=== PATIENT | male | born 1960 | race Caucasian/White ===

== ENCOUNTER → 2021-02-10 11:58 | Outpatient (CLI) | payer OTHER, SELFPAY ==
--- NOTE | ~2021-02-10 | MR_ITS ---
EXAMINATION: MR hand RT wo con DATE: 02/10/2021 13:10 INDICATION: Right hand pain. [place] thumb. TECHNIQUE: Magnetic resonance imaging (MRI) of the right hand centered at the thumb excluding portion s of the fourth and fifth fingers was performed without intravenous contrast. Sequences included axia l, sagittal and coronal T1-weighted FSE and T2-weighted FS FSE. COMPARISON: Radiographs dated 02/02/2021 FINDINGS: Bone alignment is normal. No fracture. Tiny marginal osteophytes at the first carpometacarpal and met acarpophalangeal joints with relatively preserved joint spaces consistent with minimal osteoarthritis . Nonspecific mild marrow edema at the palmar aspect of the head of the first metacarpal and base of the first proximal phalanx as well as in both the radial and ulnar sided first metatarsal sesamoids. No erosions. Thickening and mild increased signal at the distal aspect of the ulnar collateral ligame nt consistent with age-indeterminate partial tear versus degeneration. No fluid signal intensity tear defect or ligament discontinuity identified. The flexor and extensor tendons are normal. Visualized intrinsic musculature of the hand is unremarkable. IMPRESSION: 1. Age-indeterminate partial tear versus degeneration of the ulnar collateral ligament of the right t humb. 2. Mild marrow edema at the palmar aspect of the base of the first proximal phalanx, head of the firs t metacarpal and first metacarpal sesamoids which could be related to arthritis or bone contusions in the setting of trauma. Reviewed, dictated and finalized at location A. RY DECORATOR IMPRESSION: 1. Age-indeterminate partial tear versus degeneration of the ulnar collateral l igament of the right thumb. 2. Mild marrow edema at the palmar aspect of the base of the first proximal pha lanx, head of the first metacarpal and first metacarpal sesamoids which could b e related to arthritis or bone contusions in the setting of trauma.
== END ==
PROVIDERS: Visit Provider Orthopaedic Surgery
DX: M79.641 Pain in right hand (principal); R93.7 Abnormal findings on diagnostic imaging of other parts of musculoskeletal system; M79.89 Other specified soft tissue disorders
CPT/HCPCS: 73218

== ENCOUNTER 2021-03-23 14:00 | Outpatient (RCR) | payer OTHER, SELFPAY ==
--- NOTE | 2021-02-24 11:34 | PTOPEVAL ---
Thank you for referring López Coley to [facility].? The patient is scheduled to be seen for therapy? 1-2 x/week for 4 weeks. Please review, sign, date and return this plan of care LAKISHA. I agree with and certify that the following plan of care is medically necessary. Referring Physician Date Attending Provider: Jaycob Quesada MD Diagnosis right shoulder pain and bicepital tendinitis Onset 3-4 months Additional Evaluation Detail He had tennis elbow with improved sympotms with injection and therapy. 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 Subjective Information Reports his pain in mainly on Query Text:As Reported By Patient/ the anterior aspect of his Family elbow. He has incresaed pain with increased weakness from the pain. Reports limitations with reaching, pushing, lifting heavier objects. Diffuclty sleeping due to pain . Denies problems with driving. He as given an anti- inflammatory which helped. 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 He does not exercise. Pain Assessment Right Arm(s) Reported Pain Level 2 Pain Description Sharp,Tender on Palpation Pain Frequency Continuous Lowest Pain Intensity 2 Greatest Pain Intensity 8 Pain Aggravating Factors Exercise/Activity,Lifting Pain Behaviors None Upper Extremity Range of Motion General Upper Extremity Range of Motion Reason Not Measured WNL/Right Gross Upper Extremity Range of Motion pain with end range elbow flex Comments and sup/pronation Upper Extremity Muscle Strength Testing General Upper Extremity Strength Gross Upper Extremity Strength Comments right shoulder flex/abd/ lat rotation/medial rotation: 3+/5 right bicep and tricep: 5/5, sup/pronation: 5/5- pain noted with sup resistance Finger Strength Bilateral Finger Strength 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
--- NOTE | 2021-03-08 09:57 | PCPTNOTE ---
Patient did not show this appointment however a note in the chart states patient will be out of town until March 19.
--- NOTE | 2021-03-23 14:45 | PTOPEVAL ---
Physical Therapy Discharge Summary Thank you for referring López Coley to [facility].?López has attended 4 therapy visits to address his right UE limitations. As a result of skilled therapy services he demonstrates improved UE range, improved pain, improved strength and improved tissue restrictions. He has achieved maximal potential with skilled therapy services at this time. Will DC skilled therapy services at this time. Please review, sign, date and return this discharge summary LAKISHA. I agree with and certify that the following plan of care is medically necessary. Referring Physician Date Attending Provider: Jaycob Quesada MD Diagnosis right shoulder pain and bicepital tendinitis Onset 3-4 months Additional Evaluation Detail He had tennis elbow with improved symptoms with injection and therapy. 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 Subjective Information Reports his pain on the Query Text:As Reported By Patient/ anterior aspect of his elbow Family has improved. Reports minimal changes in the elbow strength, but increased awareness of shoulder weakness. Reports decreased pain with reaching, pushing, lifting heavier objects. Cont difficulty with grasping with lifting motions. Denies any diffuclty with sleeping due to pain, but intermittent stiffness. Pain Assessment Right Arm(s) Reported Pain Level 1 Lowest Pain Intensity 1 Greatest Pain Intensity 5 Upper Extremity Range of Motion General Upper Extremity Range of Motion Gross Upper Extremity Range of Motion no pain with end range elbow Comments fle/ext, slight tenderness with sup/pronation Upper Extremity Muscle Strength Testing General Upper Extremity Strength Gross Upper Extremity Strength Comments right shoulder flex/abd/ext, lat rotation/medial rotation: 4+/5 right bicep and tricep: 5/5, sup/pronation: 5/5 pain noted with sup resistance Palpation Assessment Palpation Palpation mild tenderness lateral epicondyle with wrist ext muscle attachment PT Clinical Summary Pt has attended 4 visits to address his right UE pain and limitations. He miss
== END 2021-03-24 09:39 | disposition home or self-care (01) ==
LOC: ANHPT 14:00
PROVIDERS: Visit Provider Orthopaedic Surgery
DX: M75.21 Bicipital tendinitis, right shoulder (principal); M25.521 Pain in right elbow
CPT/HCPCS: 97035; 97110; 97140; 97161

== ENCOUNTER 2021-10-25 11:15 | Outpatient (RCR) | payer OTHER, SELFPAY ==
--- NOTE | 2021-10-20 14:17 | PTOPEVAL ---
PHYSICAL THERAPY INITIAL EVALUATION. Thank you for referring López Coley to [facility].? The patient is scheduled to be seen for therapy? 1x/week for 4 weeks. Please review, sign, date and return this plan of care LAKISHA. I agree with and certify that the following plan of care is medically necessary. Referring Physician Date Attending Provider: Bryce Lopez M.D. 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 Pt states he has a small fall and about a month after that the pain started. He states he is seeing a doctor regarding a possible L hip replacement. 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 Pain Assessment Lower Back Reported Pain Level 2 Lowest Pain Intensity 0 Greatest Pain Intensity 5 Pain Aggravating Factors Changing Position Bilateral Hip(s) Reported Pain Level 2 Pain Description Aching,Soreness Lowest Pain Intensity 0 Greatest Pain Intensity 8 Pain Aggravating Factors Walking,Weight Bearing/ Standing Lumbar ROM Lumbar Flexion (0-90) 60 Lumbar Flexion Active Ankle Lumbar Extension (0-40) 30 Lateral Flexion able to reach lateral knee Query Text:Active Hands to: joint bilaterally Lateral Rotation Right (0-45) 45 Lateral Rotation Left (0-45) 45 Lower Extremity Range of Motion General Lower Extremity Range of Motion WFL/Left,WFL/Right Upper Extremity Muscle Strength Testing Gross Upper Extremity Strength Comments asad hip abduction 4/5 asad hip extension 4+/5 asad hip flexion 4+/5 asad hip adduction 4+/5 - reports mild discomfort asad knee flexion/extension 5/5 Muscle Length Testing Piriformis w/Hip Flexion >90 Degrees (R) Mild Tightness,(L) Mild Tightness Right Prone Hip Internal Rotator Length 10 Left Prone Hip Internal Rotator Length ( 20 Rig
--- NOTE | 2021-11-01 13:15 | PCPTNOTE ---
Patient did not show up for scheduled appointment this date; called patient who answered the phone stating Sorry, something came up. Reminded patient on next appointment November 10 @ 12:30pm.
--- NOTE | 2021-11-08 13:06 | PCPTNOTE ---
Patient did not show up for scheduled appointment this date; called patient stated he forgot and he couldn't reschedule today due to [place]. Patient then stated to be feeling pretty good since injection into hip has follow-up with MD in November wants to double check with the doctor that he doesn't need therapy anymore before he gets D/C from our system.
--- NOTE | 2021-11-15 16:32 | PCPTNOTE ---
Attending Provider: Bryce Lopez M.D. Patient:López Coley Date of :1960 PHYSICAL THERAPY DISCHARGE SUMMARY. Patient reports he is doing well after getting his hip injection. He would like to be discharged from skilled physical therapy services at this time. Patient?s initial visit was on 10/20/2021 and he had a total of 2 visits. Thank you for referring this patient to [facility]. Please review, sign, date and return this discharge summary LAKISHA. I have been updated about the patient's current status and I agree with discharge from the above service at this time. Referring Physician Date
== END 2021-11-25 15:29 | disposition home or self-care (01) ==
LOC: ANHPT 11:15
PROVIDERS: Referring Provider Neurological Surgery; Visit Provider Neurological Surgery
DX: M75.21 Bicipital tendinitis, right shoulder (principal); M25.511 Pain in right shoulder
CPT/HCPCS: 97112; 97161; 99199

== ENCOUNTER 2023-08-07 08:29 | Outpatient (CLI) | payer OTHER, SELFPAY ==
--- NOTE | ~2023-08-07 | MR_ITS ---
EXAMINATION: MR shoulder RT wo con DATE: 08/07/2023 09:22 INDICATION: Right shoulder tendinitis presenting with pain TECHNIQUE: Magnetic resonance imaging (MRI) of the right shoulder was performed without intravenous c ontrast. Sequences included axial PD-weighted FS FSE, coronal oblique PD-weighted FS FSE, coronal obl ique T2-weighted FS FSE, sagittal PD-weighted FS FSE, and sagittal T1-weighted SE. COMPARISON: Right shoulder radiographs dated 05/29/2023 FINDINGS: Coracoacromial arch: The acromion undersurface is curved in morphology (type II). The coracoacromial ligament is normal. M oderate acromioclavicular osteoarthritis with subarticular cystic change at the lateral head of the l eft clavicle. Rotator cuff: Mild supraspinatus and infraspinatus tendinopathy. There is mild attenuation the distal supraspinatus tendon with tiny foci of fluid signal within the distal 1.5 cm the tendon consistent with partial th ickness tear. No measurable tear defect or discrete tear margin identified without a discrete defect along the bursal or articular surfaces suggesting intrasubstance tearing. The teres minor tendon is n ormal. Mild distal subscapularis tendinopathy without discrete tear. Normal rotator cuff muscle bulk and signal. Biceps tendon, glenoid labrum and glenohumeral cartilage: Mild tendinopathy without discrete tear of the long head biceps tendon. Glenoid labrum is normal. Gle nohumeral cartilage is normal. Fluid: There is small amount increased fluid and synovitis in the long head biceps tendon sheath consistent with moderate bicipital tenosynovitis. No loose osteochondral bodies. Mild increased fluid signal in the subacromial/subdeltoid bursa consistent with minimal bursitis. 7 mm ganglion cyst along the cepha lad margin of the acromioclavicular joint. Bones: Bone alignment is normal. No fracture or pathologic marrow replacing process. IMPRESSION: 1. Mild supraspinatus, infraspinatus and subscapularis tendinopathy with likely mild intrasubstance t earing of the mildly thinned distal supraspinatus tendon without evident involvement of the articular bursal surfaces and without a discrete measurable tear defect. 2. Mild to moderate bicipital tenosynovitis with mild tendinopathy without tear of the long head everett ps tendon. 3. Moderate acromioclavicular osteoarthritis. 4. Minimal subacromial/subdeltoid bursitis. Reviewed, dictated and finalized at location B. IMPRESSION: 1. Mild supraspinatus, infraspinatus and subscapularis tendinopathy with likely mild intrasubstance tearing of the mildly thinned distal supraspinatus tendon without evident involvement of the articular bursal surfaces and without a disc rete measurable tear defect. 2. Mild to moderate bicipital tenosynovitis with mild tendinopathy without tear of the long head biceps tendon. 3. Moderate acromioclavicular osteoarthritis. 4. Minimal subacromial/subdeltoid bursitis.
== END 2023-08-07 08:30 ==
PROVIDERS: PCP Internal Medicine; Visit Provider Orthopaedic Surgery
DX: M75.51 Bursitis of right shoulder (principal); M19.011 Primary osteoarthritis, right shoulder
CPT/HCPCS: 73221

== ENCOUNTER 2023-08-16 14:45 | Outpatient (RCR) | payer OTHER, SELFPAY ==
--- NOTE | 2023-08-10 12:58 | PCPTNOTE ---
pt was 15 minutes late for evaluation appt;
--- NOTE | 2023-08-10 12:58 | PCPTNOTE ---
at the evaluation: pt reports he will be out of town for at least 2 weeks at the start of August, and may be gone the entire month of August.
--- NOTE | 2023-08-10 12:59 | OPREHPOC ---
Outpatient Therapy Plan of Care This is a Multidisciplinary Plan of Care that may contain components documented by all disciplines (PT, OT, and ST.) PT Problem 1 PT Problem #1 Knowledge Deficit PT Goal 1 Goal *indep with HEP * correct shoulder position with exercises Target Visit 8 PT Problem 2 PT Problem #2 Pain PT Goal 1 Goal 1* pt report pain at worst rating of 2/10 2* self assessment Quick DASH rating of 18% limitation in activity Target Visit 8 PT Problem 3 PT Problem #3 Impaired Strength PT Goal 1 Goal increase strength of R shoulder and scapular complex, to improve use of R arm and position of GH joint 1* pt perform standing scapular strengthening exercises x 20 reps 2* pt perform prone scapular retraction exercises x 20 reps with arms at 90' and overhead Target Visit 8
--- NOTE | 2023-08-10 12:59 | PTOPEVAL1 ---
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 He is R hand dominant and has medical history of: R and L shoulder arthroscopy, L THR and cardiac stents. The MRI report stated moderate A-C joint OA and tendinopathy. The injection decreased his pain for a few days. Quick DASH self assessment rating of 23% limitation in activity level. With the evaluation: he has good ROM of neck and R shoulder; pain increases with flexion and abduction over 90'; poor standing position of trunk and shoulders, with rounding and weakness of scapular/thoracic musculature. Skilled PT services are indicated for modalities to decrease pain, therapeutic exercises to improve scapular strength and posture/position of GH joint with education for HEP and posture. Plan of Care Interventions Electrical Stimulation,Hot Pack/Cold Pack,Manual Therapy,Neuro Re-education,Patient Education,Ther
--- NOTE | 2023-08-22 08:27 | PCPTNOTE ---
pt did not show for today's appt. Called and left voice mail reminder for next appt.
--- NOTE | 2023-08-22 09:35 | PCPTNOTE ---
pt canceled appt for 08-23, due to having to attend a . He will be out of town in August, and will call to make appt when he returns to town.
--- NOTE | 2023-10-09 10:39 | PTOPDC ---
Assessment and note entered by Krystle Mullins, PT Discharge Report Assessment Status Discharge - Pt Not Present Diagnosis R shoulder pain Onset Mar 2023 Subjective Information pt was not seen this date. Assessment PT Clinical Summary López has received 3 PT sessions, from August 09 to . He had 1 no show and 1 call/cancel appointment. Discharge PT due to pt stopped attending. The goals were not assessed. Plan of Care PT Services Indicated No
== END 2023-10-09 12:44 | disposition home or self-care (01) ==
LOC: ANHPT 14:45
PROVIDERS: PCP Internal Medicine; Visit Provider Orthopaedic Surgery
DX: M75.81 Other shoulder lesions, right shoulder (principal)
CPT/HCPCS: 97014; 97110; 97140; 97161; 97530; 99199; G0283